=== PATIENT | male | born 2000 | race Caucasian/White ===

== ENCOUNTER 2020-06-25 06:31 | Emergency (ER) | payer MEDICAID, SELFPAY ==
--- NOTE | ~2020-06-25 | XR_ITS ---
EXAMINATION: LEFT ANKLE AND FOOT X-RAY CLINICAL INFORMATION: Trauma COMPARISON: None TECHNIQUE: 3 views of the left foot and ankle FINDINGS: Left foot: Bone alignment is normal. No fracture or dislocation is seen. Joint spaces are normal. Soft tissues are normal. Left ankle: Bone alignment is normal. No fracture or dislocation is seen. The ankle mortise is normal. There is lateral soft tissue swelling. XR/XR foot LT min 3V IMPRESSION: Lateral soft tissue swelling at the ankle. No fracture or dislocation.
--- NOTE | ~2020-06-25 | XR_ITS ---
EXAMINATION: LEFT ANKLE AND FOOT X-RAY CLINICAL INFORMATION: Trauma COMPARISON: None TECHNIQUE: 3 views of the left foot and ankle FINDINGS: Left foot: Bone alignment is normal. No fracture or dislocation is seen. Joint spaces are normal. Soft tissues are normal. Left ankle: Bone alignment is normal. No fracture or dislocation is seen. The ankle mortise is normal. There is lateral soft tissue swelling. XR/XR ankle LT 2V IMPRESSION: Lateral soft tissue swelling at the ankle. No fracture or dislocation.
[2020-06-25 07:26] VITALS: BP 134/82; PULSE 81; RESP 20; TEMP 37.1; O2SAT 98; BMI 25.8
--- NOTE | 2020-06-25 07:36 | ED_ITS ---
HPI - Extremity Injury (Lower) General Chief Complaint: Extremity Injury, Lower Stated Complaint: ankle injury Time Seen by Provider: 06/25/20 07:30 Source: patient Mode of arrival: ambulatory Limitations: no limitations History of Present Illness HPI Narrative: 20-year-old male otherwise healthy came in after injured his left foot/ankle yesterday, patient was jogging he tripped and twisted his ankle and foot patient fell down, patient declined any other injuries, no LOC, patient was able to bear weight initially on the left foot with painful gait. Related Data Previous Rx's Medication Instructions Recorded oxycodone 5 mg PO Q8H PRN #10 tab 06/25/20 Allergies Allergy/AdvReac Type Severity Reaction Status Date / Time apple [APPLE] Allergy Unknown THROAT Unverified 12/22/19 16:46 ITCHY ketorolac [From TORADOL] Allergy Unknown HIVES Unverified 12/22/19 16:46 Review of Systems Review of Systems: All other systems are reviewed and are negative Constitutional: Reports as per HPI and Reports no additional constitutional complaints Eyes: Reports as per HPI and Reports no additional eye complaints Reports system reviewed and no additional complaints, except as documented Cardiovascular: Reports as per HPI and Reports no additional cardiovascular complaints Respiratory: Reports as per HPI and Reports no additional respiratory complaints Gastrointestinal: Reports as per HPI and Reports no additional gastrointestinal complaints Genitourinary: Reports no additional female genitourinary complaints Musculoskeletal: Reports no additional musculoskeletal complaints Skin/Breast: Reports system reviewed and no additional complaints, except as docu Psychiatric: Reports no additional psychiatric complaints Endocrine: Reports no additional endocrine complaints Hematologic/Lymphatic: Reports no additional hematologic/lymphatic complaints Allergic/Immunologic: Reports no additional allergic/immunologic complaints Reports system reviewed and no additional complaints, except as documented and Reports Abnormal speech present [facility] Past Medical History Medical History Asthma Surgical History History of appendectomy Social History Social History Smoking Status: Never smoker Use of substances other than those prescribed or required for medical reasons: Yes Substance Use Type: Other Advance Directives: No Advance Directives Information Provided: No Physical Exam Vital Signs: Vital Signs: Last Vital Signs Temp 98.8 F 03/22/21 07:26 Pulse 81 06/25/20 07:26 Resp 20 06/25/20 07:26 BP 134/82 06/25/20 07:26 Pulse Ox 98 06/25/20 07:26 Body Mass Index 25.8 Vital signs have been reviewed as appeared to be correct. Blood pressure normal. Heart rate normal. Respiration rate normal. Temperature normal. Oxygen saturation normal. Appearance: Alert. Oriented X3. No acute distress. Head: Normal external exam. Normocephalic. Atraumatic. No Diamond signs noted. No raccoon eyes noted Eyes: PERRLA. EOMI. Conjunctiva and sclera normal. Eyelids normal. ENT: TM's Normal. Pharynx normal. Uvula midline. Moist mucous membranes. No trismus noted. No drooling noted. No muffled voice noted. Neck: Normal inspection. Neck supple. FROM. No adenopathy. Thyroid Normal. No meningeal signs. No neck mass noted. CVS: Normal heart rate and rhythm. Heart sound normal. No murmurs noted. Pulses normal throughout. Respiratory: No respiratory distress. Painless inspiration. Breath sounds normal. No wheezes/rales/rhonchi noted. Chest nontender. No accessory muscle usage noted or decreased air movement noted. Abdomen: Soft and nontender. Bowel sounds normal in all 4 quadrants. No distention noted. No organomegaly noted. No visible injury noted. Back: No CVA tenderness. Full range of motion noted. Skin: Skin warm and dry. Normal skin color. Normal skin turgor. No rashes/lesions/lacerations noted. Extremities: Positive tenderness/swelling over the lateral malleolus of left ankle, neurovascular exam is preserved. Neuro: Oriented X 3. No motor deficit. No sensory deficit. Reflexes normal. Course Course Course Narrative: Assessment and plan. 20-year-old male with otherwise healthy presented after drip and twisting his left ankle with left sprain, x-ray show no acute fracture. Will discharge with follow-up with Orthopedic, ice, elevation, pain control (allergic to NSAIDs) MDM - Extremity Injury (Lower) Imaging Data Left ankle/foot x-ray:: Radiologist's impression: Left foot: Bone alignment is normal. No fracture or dislocation is seen. Joint spaces are normal. Soft tissues are normal. Left ankle: Bone alignment is normal. No fracture or dislocation is seen. The ankle mortise is normal. There is lateral soft tissue swelling. Discharge Plan Discharge Clinical Impression: Ankle sprain and strain Patient Disposition: Home, Self-Care Instructions: Ankle Sprain (ED) Prescriptions: New oxycodone 5 mg tablet 5 mg PO Q8H PRN (Reason: pain) Qty: 10 RF: 0 Referrals: Sandip Govea MD [Physician] - 2 days
[2020-06-25] MEDS: oxyCODONE HCl Immed Release 5 MG TABLET PO (08:07)
--- NOTE | 2020-06-25 08:56 | PC.NURSE ---
pt reports feeling better pain at 4/10, deb wrap applied to left ankle
== END 2020-06-25 09:11 | disposition home or self-care (01) ==
PROVIDERS: Emergency Provider Emergency Medicine; PCP Pediatrics
DX: S93.402A Sprain of unspecified ligament of left ankle, initial encounter (principal); S96.912A Strain of unspecified muscle and tendon at ankle and foot level, left foot, initial encounter; X50.1XXA Overexertion from prolonged static or awkward postures, initial encounter; Y93.02 Activity, running; Y92.480 Sidewalk as the place of occurrence of the external cause; Y99.9 Unspecified external cause status
CPT/HCPCS: 73600; 73630; 99283; 99284

== ENCOUNTER 2021-01-15 22:42 | Emergency (ER) | payer MEDICAID, SELFPAY ==
[2021-01-15 23:26] VITALS: BP 114/58; PULSE 74; RESP 16; TEMP 36.2; O2SAT 100; BMI 27.2
--- NOTE | 2021-01-16 00:15 | ED_ITS ---
HPI - General Adult General Chief complaint: General Medical Stated complaint: odd bruising Time Seen by Provider: 01/16/21 00:14 History of Present Illness HPI narrative: Patient is 20 years old presents today with having easy bruising to his left forearm. No fever no chills no chest pain or shortness of breath. Patient cannot remember any inciting trauma. He has full use of his arm. Patient from home. No cough no congestion or upper respiratory symptoms. No diaphoresis. Related Data Previous Rx's Medication Instructions Recorded oxycodone 5 mg tablet 5 mg PO Q8H PRN #10 tab 06/25/20 Allergies Allergy/AdvReac Type Severity Reaction Status Date / Time apple [APPLE] Allergy Unknown THROAT Unverified 12/22/19 16:46 ITCHY ketorolac [From TORADOL] Allergy Unknown HIVES Unverified 12/22/19 16:46 Review of Systems Review of Systems: No fever no chills no cough no congestion or upper respiratory symptoms. No diaphoresis Yes all other systems are reviewed and are negative [facility] Past Medical History Attestation statement: The following information was validated with the patient. Medical History Asthma Surgical History History of appendectomy Social History Social History Substance Use Type: Other Advance Directives: No Advance Directives Information Provided: No Physical Exam Vital Signs: Vital Signs: Last Vital Signs Temp 97.2 F 01/15/21 23:26 Pulse 74 01/15/21 23:26 Resp 16 01/15/21 23:26 BP 114/58 L 01/15/21 23:26 Pulse Ox 100 01/15/21 23:26 Body Mass Index 27.2 Appearance: Alert. Oriented X3. No acute distress. Eyes: Pupils equal, round and reactive to light. ENT: Pharynx normal. Neck: Normal inspection. Neck supple. No lymph nodes noted. No crepitus CVS: Normal heart rate and rhythm. Pulses normal. Normal S1 and S2 Respiratory: No respiratory distress. Breath sounds normal. No Wheezing. No rales Abdomen: Soft and nontender. No rigidity. No distention. good BS x4 Skin: Skin warm and dry. Normal skin color. Normal skin turgor. Extremities: Skin of the forearm on the left side have 2 areas of bruising. Ap proximately 4 cm x 4 cm in size. There is good range of motion at the wrist and the elbow. Full range of motion at the hand fingers. Capillary refill less than 2 seconds. Sensation intact. Neuro: Oriented X 3. No motor deficit. No sensory deficit. Moving all extermities. No slurred speech Medical Decision Making MDM Narrative Medical decision making narrative: Patient's platelets and INR are all normal. Hemoglobin is 13. Likely just an isolated bruise. Will discharge patient home. In stable condition. Lab Data Lab results reviewed: Yes I reviewed the patient's lab results. Result diagrams: 01/16/21 00:32 01/16/21 00:32 Labs: Lab Results 01/16/21 01/16/21 01/16/21 Range/Units 00:32 00:32 00:32 WBC 4.6 L (4.8-10.8) X10*3/uL RBC 4.55 L (4.60-5.80) X10*6/uL Hgb 13.0 L (14.0-18.0) g/dl Hct 38.4 L (42-52) % MCV 84.4 (80-98) fL MCH 28.6 (27.0-33.0) pg MCHC 33.9 (31.0-36.0) g/dl RDW 13.2 (11.0-16.0) % Plt Count 172 (160-400) X10*3/uL MPV 11.3 (9.4-12.4) fL Immature Gran % (Auto) 0.2 (0.0-0.4) % Neut % (Auto) 35.4 L (45-73) % Lymph % (Auto) 48.6 H (20-40) % [place] % (Auto) 8.9 (2-11) % Eos % (Auto) 6.3 H (0-4) % Baso % (Auto) 0.6 (0-2) % Lymph # (Auto) 2.3 (1.2-4.9) X10*3/uL [place] # (Auto) 0.4 (0.1-1.2) X10*3/uL Eos # (Auto) 0.3 (0.0-0.4) X10*3/uL Baso # (Auto) 0.0 (0.0-0.2) X10*3/uL Abs Immat Gran (auto) 0.01 (0.00-0.03) X10*3/uL Absolute Neuts (auto) 1.6 L (2.0-8.3) X10*3/uL Absolute Nucleated RBC 0.000 (0.0-0.012) X10*3/uL Nucleated RBC % (auto) 0.0 (0.0-0.2) /100WBC PT 12.3 (9.9-13.0) SEC INR 1.1 (0.9-1.1) Sodium 140 (135-145) mmol/L Potassium 4.0 (3.3-5.1) mmol/L Chloride 108 (96-108) mmol/L Carbon Dioxide 28 (22-29) mmol/L Anion Gap 8 L (12-20) BUN 12 (9-16) mg/dL Creatinine 1.05 (0.5-1.4) mg/dL Estim Creat Clear Calc 114.9 Estimated GFR > 60 Random Glucose 84 (60-115) mg/dL Calcium 9.6 (8.4-10.2) mg/dL Discharge Plan Discharge Clinical Impression: Bruise Patient Disposition: Home, Self-Care Instructions: Contusion in Adults (ED) Prescriptions: No Action oxycodone 5 mg tablet 5 mg PO Q8H PRN (Reason: pain) Qty: 10 RF: 0 Referrals: Rubi Padilla DO [Primary Care Provider] - 2 days
[2021-01-16 00:36] LABS: MANUAL DIFF FLAG NO
[2021-01-16 00:38] LABS: Basophils Percent Auto 0.6 % (0-2); Eosinophils Absolute Auto 0.3 X10*3/uL (0.0-0.4); Eosinophils Percent Auto 6.3 % (0-4); Hematocrit 38.4 % (42-52); Imm Gran Abs Auto 0.01 X10*3/uL (0.00-0.03); Imm Gran Pct Auto 0.2 % (0.0-0.4); Lymphocytes Absolute Auto 2.3 X10*3/uL (1.2-4.9); Lymphocytes Percent Auto 48.6 % (20-40); Mean Corpuscular HGB Conc 33.9 g/dl (31.0-36.0); Mean Corpuscular Hemoglobin 28.6 pg (27.0-33.0); Mean Corpuscular Volume 84.4 fL (80-98); Mean Platelet Volume 11.3 fL (9.4-12.4); Monocytes Absolute Auto 0.4 X10*3/uL (0.1-1.2); Monocytes Percent Auto 8.9 % (2-11); Neutrophils Absolute Auto 1.6 X10*3/uL (2.0-8.3); Neutrophils Percent Auto 35.4 % (45-73); Platelet Count 172 X10*3/uL (160-400); Red Blood Count 4.55 X10*6/uL (4.60-5.80); Red Cell Distribution Width 13.2 % (11.0-16.0); White Blood Count 4.6 X10*3/uL (4.8-10.8)
[2021-01-16 00:52] LABS: INTERNATIONAL NORM RATIO 1.1 (0.9-1.1); Prothrombin Time 12.3 SEC (9.9-13.0)
--- NOTE | 2021-01-16 01:00 | PC.NURSE ---
PT EVALED FOR BRUSING TO LEFT FOREARM. CAN NOT REMEMBER ANY INJURY. PALP PULSES.
[2021-01-16 01:01] LABS: Anion Gap 8 (12-20); Blood Urea Nitrogen 12 mg/dL (9-16); Calcium 9.6 mg/dL (8.4-10.2); Carbon Dioxide 28 mmol/L (22-29); Chloride 108 mmol/L (96-108); Creatinine Clr Calc Pharmacy 114.9; Estimated Glomerular Filt Rate > 60; Glucose Random 84 mg/dL (60-115); Sodium 140 mmol/L (135-145)
== END 2021-01-16 01:33 | disposition home or self-care (01) ==
PROVIDERS: Emergency Provider Emergency Medicine Emergency Medical Services; PCP Pediatrics
DX: S50.12XA Contusion of left forearm, initial encounter (principal); M79.602 Pain in left arm; X58.XXXA Exposure to other specified factors, initial encounter; Y93.9 Activity, unspecified; Y92.9 Unspecified place or not applicable; Y99.9 Unspecified external cause status; Z79.899 Other long term (current) drug therapy
CPT/HCPCS: 36415; 80048; 85025; 85610; 99283

== ENCOUNTER 2021-02-10 18:27 | Emergency (ER) | payer MEDICAID, SELFPAY ==
[2021-02-10 18:36] VITALS: BP 118/71; PULSE 69; RESP 18; TEMP 36.9; O2SAT 98; BMI 27.5
--- NOTE | 2021-02-10 19:15 | ED.ABDPAIN ---
HPI - Abdominal Pain General Chief Complaint: Abdominal Pain Stated Complaint: Abdominal pain/Blood in stool Time Seen by Provider: 02/10/21 19:14 Source: patient Mode of arrival: ambulatory Limitations: no limitations History of Present Illness HPI narrative: Patient no significant past medical history status post appendectomy complaining of lower abdominal cramps with diarrhea which had some bright red blood no nausea no vomiting no history of hemorrhoids pain is cramping lower abdomen denies any recent travel no other family member sick Related Data Previous Rx's Medication Instructions Recorded oxycodone 5 mg tablet 5 mg PO Q8H PRN #10 tab 06/25/20 Allergies Allergy/AdvReac Type Severity Reaction Status Date / Time apple [APPLE] Allergy Unknown THROAT Verified 02/10/21 18:36 ITCHY ketorolac [From TORADOL] Allergy Unknown HIVES Verified 02/10/21 18:36 Review of Systems Review of Systems Yes all other systems are reviewed and are negative Physical Exam Vital Signs: Vital Signs: Last Vital Signs Temp 98.1 F 02/10/21 20:35 Pulse 667 H 02/10/21 20:35 Resp 18 02/10/21 20:35 BP 119/68 02/10/21 20:35 Pulse Ox 99 02/10/21 20:35 Body Mass Index 27.5 Appearance: Alert. Oriented X3. No acute distress. Eyes no pallor icterus ENT: Pharynx normal. Oral Mucosa moist Neck: Normal inspection. Neck supple. CVS: Normal heart rate and rhythm. Pulses normal. Respiratory: No respiratory distress. Equal air entry bilateral, no wheezing/rales/rhonchi Abdomen: Soft and diffuse lower abdominal tenderness no rebound or guarding Bowel sounds are present, no mass palpable, no CVA tenderness Rectal; empty rectum no blood on the finger no hemorrhoids Skin: Skin warm and dry. Normal skin color. Normal skin turgor. Extremities: No lower extremity edema. Neuro: Oriented X 3. MDM - Abdominal Pain Lab Data Result diagrams: 02/10/21 19:42 02/10/21 19:42 Labs: Lab Results 02/10/21 02/10/21 Range/Units 19:42 19:42 WBC 5.3 (4.8-10.8) X10*3/uL RBC 5.06 (4.60-5.80) X10*6/uL Hgb 14.1 (14.0-18.0) g/dl Hct 43.2 (42.0-52.0) % MCV 85.4 (80.0-98.0) fL MCH 27.9 (27.0-33.0) pg MCHC 32.6 (31.0-36.0) g/dl RDW 13.3 (11.0-16.0) % Plt Count 186 (160-400) X10*3/uL MPV 11.8 (9.4-12.4) fL Immature Gran % (Auto) 0.4 (0.0-0.4) % Neut % (Auto) 66.7 (45-73) % Lymph % (Auto) 22.8 (20-40) % [place] % (Auto) 7.2 (2-11) % Eos % (Auto) 2.7 (0-4) % Baso % (Auto) 0.2 (0-2) % Lymph # (Auto) 1.2 (1.2-4.9) X10*3/uL [place] # (Auto) 0.4 (0.1-1.2) X10*3/uL Eos # (Auto) 0.1 (0.0-0.4) X10*3/uL Baso # (Auto) 0.0 (0.0-0.2) X10*3/uL Abs Immat Gran (auto) 0.02 (0.00-0.03) X10*3/uL Absolute Neuts (auto) 3.5 (2.0-8.3) x10*3/uL Absolute Nucleated RBC 0.000 (0.0-0.012) X10*3/uL Nucleated RBC % (auto) 0.0 (0.0-0.2) /100WBC Sodium 140 (135-145) mmol/L Potassium 3.8 (3.3-5.1) mmol/L Chloride 107 (96-108) mmol/L Carbon Dioxide 26 (22-29) mmol/L Anion Gap 11 L (12-20) BUN 14 (9-16) mg/dL Creatinine 1.10 (0.5-1.4) mg/dL Estim Creat Clear Calc 109.6 Estimated GFR > 60 Random Glucose 88 (60-115) mg/dL Calcium 9.4 (8.4-10.2) mg/dL Total Bilirubin 0.6 (0.0-1.0) mg/dL AST 28 (5-37) U/L ALT 34 (0-40) U/L Alkaline Phosphatase 81 (39-117) U/L Total Protein 8.1 H (6.5-8.0) g/dL Albumin 4.7 (3.5-5.0) g/dL Discharge Plan Discharge Clinical Impression: Gastroenteritis Patient Disposition: Home, Self-Care Instructions: Gastroenteritis (ED) Additional Instructions: Drink plenty of fluids Your symptoms should get better in next 2-3 days Follow-up PCP if any concerns Prescriptions: No Action oxycodone 5 mg tablet 5 mg PO Q8H PRN (Reason: pain) Qty: 10 RF: 0 Stand Alone Forms: Work/School Release Interventions: ED Discharge Assessment Last Done: 02/10/21 20:21 Discharge Date/Time: 02/10/21 20:41 [facility] Past Medical History Medical History Asthma Surgical History History of appendectomy Social History Social History Substance Use Type: Other Advance Directives: No Advance Directives Information Provided: Yes
[2021-02-10] MEDS: Dicyclomine HCl 10 MG CAPSULE 20 MG PO (19:34)
--- NOTE | 2021-02-10 19:35 | PC.NURSE ---
patient a&ox3, c/o abd pain, pt medicated per order, will continue to monitor.
[2021-02-10 19:46] LABS: MANUAL DIFF FLAG NO
[2021-02-10 19:50] LABS: Basophils Percent Auto 0.2 % (0-2); Eosinophils Absolute Auto 0.1 X10*3/uL (0.0-0.4); Eosinophils Percent Auto 2.7 % (0-4); Hematocrit 43.2 % (42.0-52.0); Hemoglobin 14.1 g/dl (14.0-18.0); Imm Gran Abs Auto 0.02 X10*3/uL (0.00-0.03); Imm Gran Pct Auto 0.4 % (0.0-0.4); Lymphocytes Absolute Auto 1.2 X10*3/uL (1.2-4.9); Lymphocytes Percent Auto 22.8 % (20-40); Mean Corpuscular HGB Conc 32.6 g/dl (31.0-36.0); Mean Corpuscular Hemoglobin 27.9 pg (27.0-33.0); Mean Corpuscular Volume 85.4 fL (80.0-98.0); Mean Platelet Volume 11.8 fL (9.4-12.4); Monocytes Absolute Auto 0.4 X10*3/uL (0.1-1.2); Monocytes Percent Auto 7.2 % (2-11); Neutrophils Absolute Auto 3.5 x10*3/uL (2.0-8.3); Neutrophils Percent Auto 66.7 % (45-73); Platelet Count 186 X10*3/uL (160-400); Red Blood Count 5.06 X10*6/uL (4.60-5.80); Red Cell Distribution Width 13.3 % (11.0-16.0); White Blood Count 5.3 X10*3/uL (4.8-10.8)
[2021-02-10 20:08] LABS: Alanine Aminotransferase 34 U/L (0-40); Albumin Level 4.7 g/dL (3.5-5.0); Alkaline Phosphatase 81 U/L (39-117); Anion Gap 11 (12-20); Aspartate Amino Transferase 28 U/L (5-37); Bilirubin Total 0.6 mg/dL (0.0-1.0); Blood Urea Nitrogen 14 mg/dL (9-16); Calcium 9.4 mg/dL (8.4-10.2); Carbon Dioxide 26 mmol/L (22-29); Chloride 107 mmol/L (96-108); Creatinine Clr Calc Pharmacy 109.6; Estimated Glomerular Filt Rate > 60; Glucose Random 88 mg/dL (60-115); Potassium 3.8 mmol/L (3.3-5.1); Sodium 140 mmol/L (135-145); Total Protein 8.1 g/dL (6.5-8.0)
[2021-02-10 20:35] VITALS: BP 119/68; PULSE 667; RESP 18; TEMP 36.7; O2SAT 99
== END 2021-02-10 20:41 | disposition home or self-care (01) ==
PROVIDERS: Emergency Provider Internal Medicine; PCP Pediatrics
DX: K52.9 Noninfective gastroenteritis and colitis, unspecified (principal); R10.30 Lower abdominal pain, unspecified
CPT/HCPCS: 36415; 80053; 85025; 99283

== ENCOUNTER 2021-03-15 12:01 | Outpatient (REF) | payer MEDICAID, SELFPAY ==
[2021-03-15 12:32] LABS: COVID-19 Test Negative (Negative); IDNOW Serial# 16C4AD1C
== END 2021-03-15 12:02 | disposition home or self-care (01) ==
LOC: HO.LAB 12:01
PROVIDERS: Visit Provider Internal Medicine
DX: Z20.822 Contact with and (suspected) exposure to COVID-19 (principal)
CPT/HCPCS: 36415; 87635; C9803

== ENCOUNTER 2021-04-09 19:47 | Emergency (ER) | payer MEDICAID, SELFPAY ==
--- NOTE | ~2021-04-09 | XR_ITS ---
EXAMINATION: XR FINGER, LEFT CLINICAL INFORMATION: Index finger laceration. COMPARISON: None. TECHNIQUE: 2 views of the left index finger. FINDINGS: Soft tissue thickening of the index finger without evidence of acute fractures or malalignment. No unexpected radiopaque foreign bodies. XR/XR finger LT min 2V IMPRESSION: No acute fractures or malalignment.
[2021-04-09 21:09] VITALS: BP 109/55; PULSE 66; RESP 14; TEMP 36.8; O2SAT 98; BMI 27.8
--- NOTE | 2021-04-09 22:23 | ED.WOUNDLAC ---
HPI - Wound/Laceration General Chief Complaint: Wound/Laceration Stated Complaint: left hand laceration Time Seen by Provider: 04/09/21 22:19 Source: patient Mode of arrival: ambulatory Limitations: no limitations History of Present Illness HPI narrative: 21 yo male presents to the ER with a small laceration to the PIP knuckle of his left index finger he sustained at work earlier today when he accidentally cut it on a metal disc. He reports some tingling and pain with flexion. He is able to bend and extend. Bleeding is controlled and his tetnaus is UTD. Onset (ago): hour(s) Extremity Location: left: hand (index finger) Place: work Patient tetanus UTD: Yes Context: accidental Associated symptoms: pain and loss of feeling/numbness Treatments prior to arrival: bandage Related Data Previous Rx's Medication Instructions Recorded oxycodone 5 mg tablet 5 mg PO Q8H PRN #10 tab 06/25/20 Allergies Allergy/AdvReac Type Severity Reaction Status Date / Time apple [APPLE] Allergy Unknown THROAT Verified 02/10/21 18:36 ITCHY ketorolac [From TORADOL] Allergy Unknown HIVES Verified 02/10/21 18:36 Review of Systems Review of Systems: Constitutional: No Fever, No Chills Gastrointestinal: No Nausea, No Vomiting Musculoskeletal: + joint pain, No Myalgias Skin: + Skin Lesions, No rash Neuro: No Weakness, + Numbness, No Dizziness, No Headache Heme/Lymph: No Bruising, No Lymphadenopathy PMFSH Past Medical History Medical History Asthma Surgical History History of appendectomy Social History Social History Substance Use Type: Other Advance Directives: No Physical Exam Vital Signs: Vital Signs: Last Vital Signs Temp 98.3 F 04/09/21 21:09 Pulse 66 04/09/21 21:09 Resp 14 04/09/21 21:09 BP 109/55 L 04/09/21 21:09 Pulse Ox 98 04/09/21 21:09 BMI result Body Mass Index 27.8 Appearance: Alert. Oriented X3. No acute distress. HEENT: normal inspection CVS: Normal heart rate and rhythm. Pulses normal. Respiratory: No respiratory distress. Skin: Skin warm and dry. Normal skin color. Normal skin turgor. No rashes. Extremities: left index finger with a 1.5 cm laceration on the dorsal aspect of the PIP, no active bleeding. pain with flexion, full extension painless. NV intact distally. Neuro: Oriented X 3. No motor deficit. No sensory deficit. Course Course Course Narrative: 21 yo male presenting with a small lac to his left index finger. On knuckle so wound benefit from sutures to ensure adequate closure and healing. Will get XR to r/o bony involvement. Reevaluation(s) Reevaluation #1: x-ray negative. 3 sutures placed. wound care discussed. stable for d/c home Procedures Laceration Laceration 1: Site: hand Side (If applicable): left Size (cm): 1.5 Description: linear Depth: simple, single layer Local Anesthetic: lidocaine 2% Amount of anesthesia used (mL): 1 Pre-repair: wound explored and deep structures intact Skin layer closed with: nylon Size (cm): 4-0 Number of sutures: 3 Discharge Plan Discharge Clinical Impression: Finger laceration Qualifiers: Encounter type: initial encounter Finger: index finger Damage to nail status: without damage Foreign body presence: without foreign body Laterality: left Qualified Code(s): S61.211A - Laceration without foreign body of left index finger without damage to nail, initial encounter Patient Disposition: Home, Self-Care Instructions: Finger Laceration (ED) Additional Instructions: Your finger x-ray today was normal. You will need your stitches out in 7-10 days. See you doctor for this or come back to the ER and we will remove them. Do not get wet for 24 hours, after that you can briefly wash with soap and water then pat dry. Use bacitracin 2x per day. Keep wound clean and covered. Do not submerge in water, no swimming. If you develop signs of infection including increased pain, swelling, redness or drainage of pus come back to the ER for further evaluation. Prescriptions: No Action oxycodone 5 mg tablet 5 mg PO Q8H PRN (Reason: pain) Qty: 10 RF: 0
[2021-04-09] MEDS: Lidocaine HCl 2 % MPF 5 ML VIAL INFILTRATI (22:55)
== END 2021-04-09 23:02 | disposition home or self-care (01) ==
PROVIDERS: Emergency Provider Emergency Medicine Emergency Medical Services
DX: S61.412A Laceration without foreign body of left hand, initial encounter (principal); W26.8XXA Contact with other sharp object(s), not elsewhere classified, initial encounter; Y93.G1 Activity, food preparation and clean up; Y92.511 Restaurant or cafe as the place of occurrence of the external cause; Y99.0 Civilian activity done for income or pay
CPT/HCPCS: 12001; 73140; 99283; 99284

== ENCOUNTER → 2021-04-19 10:18 | Outpatient (BNVA) | payer MEDICAID, SELFPAY | PROVIDERS: Visit Provider Physician Assistant Medical | DX: S63.631A Sprain of interphalangeal joint of left index finger, initial encounter (principal); W26.9XXA Contact with unspecified sharp object(s), initial encounter | CPT/HCPCS: 99202; 99212 ==

== ENCOUNTER 2021-10-23 11:05 | Emergency (ER) | payer MEDICAID, SELFPAY ==
--- NOTE | ~2021-10-23 | XR_ITS ---
EXAMINATION: XR CHEST CLINICAL INFORMATION: COVID positive. Cough COMPARISON: 09/18/2017 TECHNIQUE: 2 views of the chest were obtained. FINDINGS: Lungs are clear. No focal consolidation or mass. Normal pulmonary vascularity. No pleural effusion or pneumothorax. Normal heart size. No acute osseous abnormality. XR/XR chest 2V IMPRESSION: Normal chest. No acute pulmonary disease.
[2021-10-23 12:17] VITALS: BP 117/65; PULSE 131; RESP 19; TEMP 39.5; O2SAT 96; BMI 28.8
[2021-10-23] MEDS: Acetaminophen 325 MG TABLET 975 MG PO (12:22)
[2021-10-23] MEDS: Ibuprofen 600 MG TABLET PO (12:23)
--- NOTE | 2021-10-23 14:34 | ED.URI ---
HPI - URI/Sore Throat General Chief Complaint: Upper Respiratory Symptoms Stated Complaint: COVD+/Difficulty breathing Time Seen by Provider: 10/23/21 14:26 Source: patient Mode of arrival: ambulatory Limitations: no limitations History of Present Illness HPI Narrative: 21-year-old with history of asthma presents emergency room complaining of shortness of breath. Patient is not wheezing he states he is vaccinated for COVID his fever nausea body aches. MD elicited complaint: fever, cough and sore throat Related Data Previous Rx's Medication Instructions Recorded oxycodone 5 mg tablet 5 mg PO Q8H PRN pain #10 tabs 06/25/20 acetaminophen 325 mg tablet 325 mg PO QID PRN pain #90 tabs 10/23/21 (Tylenol) albuterol sulfate 90 mcg/actuation 2 puff inhalation QID PRN 10/23/21 aerosol inhaler shortness of breath or wheezing #8.5 grams benzonatate 100 mg capsule 100 mg PO BID PRN cough #20 caps 10/23/21 ibuprofen 400 mg tablet 400 mg PO Q6H PRN Pain #60 tabs 10/23/21 Allergies Allergy/AdvReac Type Severity Reaction Status Date / Time apple [APPLE] Allergy Unknown THROAT Verified 02/10/21 18:36 ITCHY ketorolac [From TORADOL] Allergy Unknown HIVES Verified 02/10/21 18:36 Review of Systems Review of Systems: Review of systems: General: fever chills recent illness no falls Musculoskeletal: body aches Denies back pain or other injuries HEENT: headache, runny nose, no ear pain Respiratory: shortness of breath, cough Cardiovascular: no chest pain or palpitations : denies dysuria, frequency Abdomen: no nausea vomiting denies abdominal pain Extremities: no swelling, no pain Skin: no diaphoresis Yes all other systems are reviewed and are negative PMFSH Past Medical History Medical History Asthma Surgical History History of appendectomy Social History Social History Substance Use Type: Other Advance Directives: No Advance Directives Information Provided: Yes Physical Exam Vital Signs: Vital Signs: Last Vital Signs Temp 98.9 F 10/23/21 14:45 Pulse 94 10/23/21 14:45 Resp 18 10/23/21 14:45 BP 117/65 10/23/21 12:17 Pulse Ox 98 10/23/21 14:45 O2 Del Method 10/23/21 14:45 BMI result Body Mass Index 28.8 General: Well-appearing well-nourished in no signs of distress HEENT: Normocephalic atraumatic Neck: No signs of JVD, no masses no tenderness or lymphadenopathy Cardiovascular: Regular rate and rhythm Respiratory: Clear to auscultation bilaterally Abdomen: Soft nontender no masses Extremities: Normal pedal pulses no signs of edema Skin: Dry warm no rashes Back: No tenderness full ROM MDM - URI/Sore Throat MDM Narrative Medical decision making narrative: Patient is well patient has a fever and tachycardia he was given Tylenol and ibuprofen again patient 1 L fluids. I will reassess his vitals patient had an x-ray XR is normal vitals are improved I will send home Patient was educated that he can take Tylenol ibuprofen together as well as Tylenol every 4 hours and ibuprofen every 6 he has not take anything since yesterday. Differential Diagnosis Differential diagnosis: Likely upper respiratory infection Medical Records Attestation: I reviewed the patient's medical records. Lab Data Attestation: I reviewed the patient's lab results. Discharge Plan Discharge Clinical Impression: COVID, Fever Patient Disposition: Home, Self-Care Instructions: COVID-19 (Coronavirus Disease 2019) (ED) Additional Instructions: Please take Tylenol every 4 hours for fever they will help him much better as well as ibuprofen every 6 and to the fever goes away I sent your albuterol and tesjose roberto malin to your pharmacy. Prescriptions: New acetaminophen [Tylenol] 325 mg tablet 325 mg PO QID PRN (Reason: pain) Qty: 90 0RF benzonatate 100 mg capsule 100 mg PO BID PRN (Reason: cough) Qty: 20 0RF ibuprofen 400 mg tablet 400 mg PO Q6H PRN (Reason: Pain) Qty: 60 0RF albuterol sulfate 90 mcg/actuation HFA aerosol inhaler 2 puff inhalation QID PRN (Reason: shortness of breath or wheezing) Qty: 8.5 0RF No Action oxycodone 5 mg tablet 5 mg PO Q8H PRN (Reason: pain) Qty: 10 0RF
[2021-10-23 14:45] VITALS: PULSE 94; RESP 18; TEMP 37.2; O2SAT 98
[2021-10-23] MEDS: 0.9 % Sodium Chloride 1,000 ML 999 ML IV (14:55)
[2021-10-23] MEDS: Benzonatate 100 MG CAPSULE PO (15:08)
[2021-10-23] MEDS: Ondansetron ODT 4 MG TAB.RAPDIS TRANSLINGU (15:08)
== END 2021-10-23 15:59 | disposition home or self-care (01) ==
PROVIDERS: Emergency Provider Student in an Organized Health Care Education/Training Program
DX: U07.1 COVID-19 (principal); R05.9 Cough, unspecified; R06.02 Shortness of breath; R50.9 Fever, unspecified; Z79.899 Other long term (current) drug therapy
CPT/HCPCS: 71046; 96360; 99283; 99284

== ENCOUNTER 2023-04-08 16:35 | Emergency (ER) | payer MEDICAID, SELFPAY ==
--- NOTE | 2023-04-08 16:40 | ED_ITS ---
HPI - Male Genitourinary General Chief complaint: Abdominal Pain Stated complaint: groin pain since last night, shivers Time Seen by Provider: 04/09/23 03:35 Source: patient Mode of arrival: ambulatory Limitations: no limitations History of Present Illness HPI Narrative: Patient complaining of left groin pain since last night radiating to left testicle no nausea no vomiting no significant abdominal pain no fever or chills no urinary complaint Related Data Previous Rx's Medication Instructions Recorded oxycodone 5 mg tablet 5 mg PO Q8H PRN pain #10 tabs 06/25/20 acetaminophen 325 mg tablet 325 mg PO QID PRN pain #90 tabs 10/23/21 (Tylenol) albuterol sulfate 90 mcg/actuation 2 puff inhalation QID PRN 10/23/21 aerosol inhaler shortness of breath or wheezing #8.5 grams benzonatate 100 mg capsule 100 mg PO BID PRN cough #20 caps 10/23/21 ibuprofen 400 mg tablet 400 mg PO Q6H PRN Pain #60 tabs 10/23/21 ibuprofen 600 mg tablet 600 mg PO Q6H PRN fever or pain 04/09/23 #30 tabs Allergies Allergy/AdvReac Type Severity Reaction Status Date / Time apple [APPLE] Allergy Unknown THROAT Verified 04/08/23 16:43 ITCHY ketorolac [From TORADOL] Allergy Unknown HIVES Verified 04/08/23 16:43 Review of Systems Review of Systems: Yes all other systems are reviewed and are negative PMFSH Past Medical History Onset Date is defined in the Problem List Problems that require an onset date and time if occurred within 24 hrs of arrival to the ED Aortic Dissection and Rupture; Neurologic impairment; Cardiopulmonary Arrest; Endotracheal Intubation; Insertion or Replacement of Mechanical Circulatory Assist Device Medical History Asthma Surgical History History of appendectomy Social History Social History Smoked in Last 30 Days: No Use of substances other than those prescribed or required for medical reasons: Yes Substance Use Type: Marijuana Substance Use Frequency: Chronic Longstanding Last Used Substance: Days (ago) Advance Directives: No Advance Directives Information Provided: Yes Physical Exam Vital Signs: Vital Signs: Last Vital Signs Temp 98.9 F 04/08/23 16:41 Pulse 77 04/08/23 16:41 Resp 16 04/09/23 02:22 BP 143/94 H 04/08/23 16:41 Pulse Ox 99 04/08/23 16:41 O2 Del Method Room Air 04/08/23 16:41 BMI result Body Mass Index 26.8 Appearance: Alert. Oriented X3. No acute distress. Neck: Normal inspection. Neck supple. CVS: Normal heart rate and rhythm. Pulses normal. Respiratory: No respiratory distress. Equal air entry bilateral, Abdomen: Soft and nontender. Mild tenderness in the right groin area no mass palpable Bowel sounds are present, no CVA tenderness : Normal testes and penis, nontender scrotum no hernia palpable epididymis normal mild tenderness right groin Skin: Skin warm and dry. Normal skin color. Normal skin turgor. Extremities: No lower extremity edema. No calf tenderness Neuro: Oriented X 3. Course Course Course Narrative: RME: 23 yo M w/ no PMHx presenting to the ED c/o pelvic/groin pain x today with chills worse on right but radiated to left. denies fever/cough, testicular pain/swelling/lesions, discharge/bleeding, dysuria, concern for STI. UA, CTNG, US pelvic & scrotal ordered Full HPI, ROS and PE to be performed by primary ED provider. Medical Decision Making Medical Decision Making [facility] Narrative: Patient with benign scrotum and groin area likely has right groin strain no hernia palpable no hydrocele no penile discharge Lab Data [facility] Lab Attestation statement: I reviewed the patient's lab results. Labs: Lab Results 04/09/23 Range/Units 02:13 Urine Color Yellow Urine Appearance Clear Urine pH 6.0 (5.0-9.0) Ur Specific [place] 1.010 (1.005-1.025) Urine Protein Negative (Neg-Trace) mg/dL Urine Glucose (UA) Negative (Negative) mg/dL Urine Ketones Negative (Negative) mg/dL Urine Blood Negative (Negative) Urine Nitrite Negative (Negative) Ur Leukocyte Esterase Negative (Negative) Chlam trachomat DNA PCR NOT DETECTED (Not Detect.) N.gonorrhoeae DNA (PCR) NOT DETECTED (Not Detect.) Independent Interpretation I performed an independent interpretation of an: Ultrasound Radiology Impression Discussion of test interpretation with radiology: I have reviewed the radiologist's reading. Discharge Plan Discharge Clinical Impression: Groin strain Patient Disposition: Home, Self-Care Instructions: Groin Strain (ED) Additional Instructions: Take ibuprofen for pain The ultrasound is negative for hernia or any significant testicular problem Prescriptions: New ibuprofen 600 mg tablet 600 mg PO Q6H PRN (Reason: fever or pain) Qty: 30 0RF No Action oxycodone 5 mg tablet 5 mg PO Q8H PRN (Reason: pain) Qty: 10 0RF acetaminophen [Tylenol] 325 mg tablet 325 mg PO QID PRN (Reason: pain) Qty: 90 0RF benzonatate 100 mg capsule 100 mg PO BID PRN (Reason: cough) Qty: 20 0RF ibuprofen 400 mg tablet 400 mg PO Q6H PRN (Reason: Pain) Qty: 60 0RF albuterol sulfate 90 mcg/actuation HFA aerosol inhaler 2 puff inhalation QID PRN (Reason: shortness of breath or wheezing) Qty: 8.5 0RF Interventions: ED Discharge Assessment Last Done: 04/09/23 04:10 Discharge Date/Time: 04/09/23 04:10
[2023-04-08 16:41] VITALS: BP 143/94; PULSE 77; RESP 18; TEMP 37.2; O2SAT 99; BMI 26.8
[2023-04-09 02:22] VITALS: RESP 16
--- NOTE | 2023-04-09 03:44 | ED.MALEGU ---
HPI - Male Genitourinary General Chief complaint: Abdominal Pain Stated complaint: groin pain since last night, shivers Time Seen by Provider: 04/09/23 03:35 Source: patient Mode of arrival: ambulatory Limitations: no limitations History of Present Illness HPI Narrative: Patient complaining of Right groin area after strenuous sexual activity 3 days ago pain is localized to the right groin radiating to the right testicle no penile discharge no urinary symptoms no hernia the abdominal pain no nausea no vomiting no fever or chills Related Data Previous Rx's Medication Instructions Recorded oxycodone 5 mg tablet 5 mg PO Q8H PRN pain #10 tabs 06/25/20 acetaminophen 325 mg tablet 325 mg PO QID PRN pain #90 tabs 10/23/21 (Tylenol) albuterol sulfate 90 mcg/actuation 2 puff inhalation QID PRN 10/23/21 aerosol inhaler shortness of breath or wheezing #8.5 grams benzonatate 100 mg capsule 100 mg PO BID PRN cough #20 caps 10/23/21 ibuprofen 400 mg tablet 400 mg PO Q6H PRN Pain #60 tabs 10/23/21 ibuprofen 600 mg tablet 600 mg PO Q6H PRN fever or pain 04/09/23 #30 tabs Allergies Allergy/AdvReac Type Severity Reaction Status Date / Time apple [APPLE] Allergy Unknown THROAT Verified 04/08/23 16:43 ITCHY ketorolac [From TORADOL] Allergy Unknown HIVES Verified 04/08/23 16:43 Review of Systems Review of Systems: Yes all other systems are reviewed and are negative PMFSH Past Medical History Onset Date is defined in the Problem List Problems that require an onset date and time if occurred within 24 hrs of arrival to the ED Aortic Dissection and Rupture; Neurologic impairment; Cardiopulmonary Arrest; Endotracheal Intubation; Insertion or Replacement of Mechanical Circulatory Assist Device Medical History Asthma Surgical History History of appendectomy Social History Social History Smoked in Last 30 Days: No Use of substances other than those prescribed or required for medical reasons: Yes Substance Use Type: Marijuana Substance Use Frequency: Chronic Longstanding Last Used Substance: Days (ago) Advance Directives: No Advance Directives Information Provided: Yes Physical Exam Vital Signs: Vital Signs: Last Vital Signs Temp 98.9 F 04/08/23 16:41 Pulse 77 04/08/23 16:41 Resp 16 04/09/23 02:22 BP 143/94 H 04/08/23 16:41 Pulse Ox 99 04/08/23 16:41 O2 Del Method Room Air 04/08/23 16:41 BMI result Body Mass Index 26.8 Appearance: Alert. Oriented X3. No acute distress. CVS: Normal heart rate and rhythm. Pulses normal. Respiratory: No respiratory distress. Equal air entry bilateral, Abdomen: Soft and nontender. Bowel sounds are present, no mass palpable, no CVA tenderness : Slight tenderness in the right groin area no hernia palpable no lymph node palpable testicles normal epididymis normal no penile discharge Skin: Skin warm and dry. Normal skin color. Normal skin turgor. Extremities: No lower extremity edema. No calf tenderness Neuro: Oriented X 3. Medical Decision Making Differential Diagnosis Differential Diagnoses: The differential diagnosis associated with the presentation includes Epididymitis/medical seal/hernia Lab Data [facility] Lab Attestation statement: I reviewed the patient's lab results. Labs: Lab Results 04/09/23 Range/Units 02:13 Urine Color Yellow Urine Appearance Clear Urine pH 6.0 (5.0-9.0) Ur Specific [place] 1.010 (1.005-1.025) Urine Protein Negative (Neg-Trace) mg/dL Urine Glucose (UA) Negative (Negative) mg/dL Urine Ketones Negative (Negative) mg/dL Urine Blood Negative (Negative) Urine Nitrite Negative (Negative) Ur Leukocyte Esterase Negative (Negative) Independent Interpretation I performed an independent interpretation of an: Ultrasound Radiology Impression Discussion of test interpretation with radiology: I have reviewed the radiologist's reading. Discharge Plan Discharge Clinical Impression: Groin strain Patient Disposition: Home, Self-Care Instructions: Groin Strain (ED) Additional Instructions: Take ibuprofen for pain The ultrasound is negative for hernia or any significant testicular problem Prescriptions: New ibuprofen 600 mg tablet 600 mg PO Q6H PRN (Reason: fever or pain) Qty: 30 0RF No Action oxycodone 5 mg tablet 5 mg PO Q8H PRN (Reason: pain) Qty: 10 0RF acetaminophen [Tylenol] 325 mg tablet 325 mg PO QID PRN (Reason: pain) Qty: 90 0RF benzonatate 100 mg capsule 100 mg PO BID PRN (Reason: cough) Qty: 20 0RF ibuprofen 400 mg tablet 400 mg PO Q6H PRN (Reason: Pain) Qty: 60 0RF albuterol sulfate 90 mcg/actuation HFA aerosol inhaler 2 puff inhalation QID PRN (Reason: shortness of breath or wheezing) Qty: 8.5 0RF
== END 2023-04-09 04:10 | disposition home or self-care (01) ==
PROVIDERS: Emergency Provider Internal Medicine
DX: S39.011A Strain of muscle, fascia and tendon of abdomen, initial encounter (principal); X58.XXXA Exposure to other specified factors, initial encounter; R10.31 Right lower quadrant pain; Y93.9 Activity, unspecified; Y92.9 Unspecified place or not applicable; Y99.9 Unspecified external cause status
CPT/HCPCS: 0353U; 76857; 76870; 81003; 93975; 99284